=== PATIENT | female | born 1970 ===

== ENCOUNTER 2017-12-07 16:43 | Emergency (ER) | payer OTHER ==
[2017-12-07 16:55] VITALS: BP 112/77
--- NOTE | 2017-12-07 20:20 | Emergency Department Report ---
ED Abdominal Pain HPI - General Chief Complaint: Abdominal Pain Stated Complaint: ABDOMINAL LUMP Time Seen by Provider: 12/07/17 20:01 Source: patient Mode of arrival: Ambulatory Limitations: No Limitations - History of Present Illness Initial Comments: Patient is a 47-year-old female who's been fasting for approximately a week for ada who is presenting with some discomfort in the epigastrium. Patient states is worse when she sitting up. Patient feels as though there is a lump underneath skin. Patient denies any fevers chills nausea vomiting diarrhea cough congestion or chest pain at this time. -: week(s) (1) Severity scale (0 -10): 3 - Related Data Previous Rx's Medication Instructions Recorded Last Taken Type Famotidine [Pepcid] 40 mg PO QHS #14 tablet 12/07/17 Unknown Rx Allergies Allergy/AdvReac Type Severity Reaction Status Date / Time No Known Allergies Allergy Unverified 12/07/17 16:50 ED Review of Systems ROS: Stated complaint: ABDOMINAL LUMP Other details as noted in HPI Comment: All other systems reviewed and negative ED Past Medical Hx - Past Medical History Hx Diabetes: (pre diabetic) - Surgical History Past Surgical History?: No - Social History Smoking Status: Never Smoker Substance Use Type: None - Medications Home Medications: Home Medications Medication Instructions Recorded Confirmed Last Taken Type Famotidine [Pepcid] 40 mg PO QHS #14 tablet 12/07/17 Unknown Rx ED Physical Exam - General Limitations: No Limitations General appearance: alert, in no apparent distress - Head Head exam: Present: atraumatic, normocephalic - Eye Eye exam: Present: normal appearance - ENT ENT exam: Present: mucous membranes moist - Neck Neck exam: Present: normal inspection - Respiratory Respiratory exam: Present: normal lung sounds bilaterally. Absent: respiratory distress - Cardiovascular Cardiovascular Exam: Present: regular rate, normal rhythm. Absent: systolic murmur, diastolic murmur, rubs, gallop - GI/Abdominal GI/Abdominal exam: Present: soft, normal bowel sounds. Absent: distended, tenderness, guarding, rebound, rigid, mass, pulsatile mass, hernia - Extremities Exam Extremities exam: Present: normal inspection - Back Exam Back exam: Present: normal inspection - Neurological Exam Neurological exam: Present: alert, oriented X3 - Psychiatric Psychiatric exam: Present: normal affect, normal mood - Skin Skin exam: Present: warm, dry, intact, normal color. Absent: rash ED Course Vital Signs 12/07/17 16:51 Temperature 98.1 F Pulse Rate 77 Respiratory 18 Rate Blood Pressure 112/77 O2 Sat by Pulse 99 Oximetry ED Medical Decision Making - Medical Decision Making The patient's symptoms sound muscular skeletal in nature. The patient also has been eating less because she's been fasting and she is describing it as a lump or a pressure in the epigastrium. Patient could have some increased acid production or ulcer as well. Patient will be started on Pepcid daily at bedtime and will be discharged home following her primary physician. Critical care attestation.: If time is entered above; I have spent that time in minutes in the direct care of this critically ill patient, excluding procedure time. ED Disposition Clinical Impression: Epigastric pain Disposition: DC-01 TO HOME OR SELFCARE Is pt being admited?: No Does the pt Need Aspirin: No Condition: Stable Instructions: Abdominal Pain (ED) Prescriptions: Famotidine [Pepcid] 40 mg PO QHS #14 tablet Referrals: PRIMARY CARE, [Primary Care Provider] - 3-5 Days
== END 2017-12-07 20:35 | disposition home or self-care (01) ==
LOC: ED 16:43
DX: R10.13 Epigastric pain (principal)
CPT/HCPCS: 99282